=== PATIENT | male | born 2000 | race Two or more races ===

== ENCOUNTER 2024-03-22 21:55 | Inpatient (IN) | payer MEDICAID ==
[~2024-03-22] VITALS: Ht 152.4 cm; Wt 60.8 kg
[2024-03-22 19:10] VITALS: BP 149/85; TEMP 99.1; O2SAT 95
[2024-03-22 22:10] VITALS: BP 149/85; TEMP 99.1; O2SAT 95
[2024-03-22] MEDS ORDERED: MORPHINE SULFATE 2 MG/1 ML DISP.SYRIN IM PRN (23:00)
[2024-03-22] MEDS: IV NS 1000 ML 1,000 ML IV PRN (23:55)
[2024-03-23 04:48] VITALS: BP 136/79; TEMP 97.9; O2SAT 99
[2024-03-23 06:23] LABS: BASOPHILS % (AUTO) 0.9 % (0.0-2.0); HEMATOCRIT 46.3 % (36.7-47.1); HEMOGLOBIN 15.7 g/dL (12.5-16.3); LYMPHOCYTES # (AUTO) 0.8 K/uL (0.8-4.8); LYMPHOCYTES % (AUTO) 18.5 % (20.5-51.5); MEAN CORPUSCULAR HEMOGLOBIN 31.9 uug (23.8-33.4); MEAN CORPUSCULAR HGB CONC 34 g/dL (32.5-36.3); MEAN CORPUSCULAR VOLUME 94.2 fL (73.0-96.2); MONOCYTES # (AUTO) 0.4 K/uL (0.1-1.30); MONOCYTES % (AUTO) 9.9 % (0.0-11.0); NEUTROPHILS # (AUTO) 2.9 K/uL (1.8-8.9); NEUTROPHILS % (AUTO) 69.7 % (38.5-71.5); PLATELET COUNT (AUTO) 176 K/uL (152-348); RED BLOOD CELL COUNT(AUTO) 4.92 MIL/uL (4.06-5.63); RED CELL DISTRIBUTION WIDTH 14.3 % (12.1-16.2); WHITE BLOOD COUNT (AUTO) 4.2 K/uL (3.6-10.2)
[2024-03-23] MEDS: PANTOPRAZOLE SODIUM 40 MG TABLET.DR PO SCH (06:25)
[2024-03-23] MEDS: LORAZEPAM 2 MG/1 ML VIAL IV PRN (06:30)
[2024-03-23 06:45] LABS: ALANINE AMINOTRANSFERASE 237 U/L (16-63); ALBUMIN 4.3 g/dL (3.4-5.0); ALKALINE PHOSPHATASE 93 U/L (50-136); ASPARTATE AMINOTRANSFERASE 154 U/L (15-37); BILIRUBIN,TOTAL 1.7 mg/dL (0.2-1.0); CALCIUM 8.9 mg/dL (8.5-10.1); CARBON DIOXIDE 25 mmol/L (21-32); CHLORIDE 102 mmol/L (98-107); CREATININE 0.6 mg/dL (0.6-1.3); GLUCOSE 90 mg/dL (74-106); LIPASE 342 U/L (16-77); MAGNESIUM 2.4 mg/dL (1.8-2.4); SODIUM SERUM 137 mmol/L (136-145); TOTAL PROTEIN, SERUM 7.9 g/dL (6.4-8.2); UREA NITROGEN, BLOOD 9 mg/dL (7-18)
[2024-03-23 07:00] LABS: DIFFERENTIAL COMMENT 1
[2024-03-23 07:30] VITALS: BP 121/83; TEMP 97.7; O2SAT 98
[2024-03-23] MEDS: MULTIVITAMINS,THERAPEUTIC TABLET PO SCH (08:51)
[2024-03-23] MEDS: THIAMINE HCL 100 MG TABLET PO SCH (08:51)
[2024-03-23] MEDS: FOLIC ACID 1 MG TABLET PO SCH (08:51)
[2024-03-23 11:30] VITALS: BP 128/73; TEMP 98.3; O2SAT 97
== END 2024-03-23 14:41 | disposition home or self-care (01) | DRG 816 ==
LOC: TELE3 21:55 → MEDSURG3 03-23 10:45
PROVIDERS: ADMIT Internal Medicine; ATTEND Nurse Practitioner Acute Care
DX: T51.0X1A Toxic effect of ethanol, accidental (unintentional), initial encounter (principal); G92.8 Other toxic encephalopathy; K85.90 Acute pancreatitis without necrosis or infection, unspecified; R74.01 Elevation of levels of liver transaminase levels; Y92.89 Other specified places as the place of occurrence of the external cause; F10.180 Alcohol abuse with alcohol-induced anxiety disorder; F10.139 Alcohol abuse with withdrawal, unspecified
CPT/HCPCS: 36415; 83690; 83735; 84100; 85025; A4663; G0378; J2060; J7040